=== PATIENT | female | born 1995 | race Caucasian/White ===

== ENCOUNTER → 2020-05-07 10:36 | Outpatient (CLI) | payer OTHER, SELFPAY ==
[2020-05-07 11:04] LABS: Add Manual Diff / Slide Review NO; Basophils Absolute Auto 0 /uL (0-100); Basophils Percent Auto 0.4 % (0-2); Eosinophils Absolute Auto 100 /uL (0-450); Eosinophils Percent Auto 1.3 % (2-4); Hematocrit 37.8 % (36-46); Hemoglobin 12.8 g/dL (12.0-16.0); Lymphocytes Absolute Auto 2000 /uL (1100-4500); Lymphocytes Percent Auto 26.5 % (25-40); Mean Corpuscular HGB Conc 33.8 % (30-36); Mean Corpuscular Hemoglobin 28.5 PG (26-34); Mean Corpuscular Volume 84.4 fL (80-100); Monocytes Absolute Auto 500 /uL (0-900); Monocytes Percent Auto 6.5 % (3-14); Neutrophils Absolute Auto 5000 /uL (1500-7000); Neutrophils Percent Auto 65.3 % (50-75); Platelet Count 263 X10^3/uL (150-400); Red Blood Cell Count 4.48 X10^6/uL (4.0-5.2); Red Cell Distribution Width 13.2 % (11.6-14.8); White Blood Cell Count 7.6 X10^3/uL (4.5-11.0)
[2020-05-07 11:23] LABS: Alanine Aminotransferase 30 IU/L (<35); Albumin 4.4 g/dL (3.5-5.0); Albumin Globulin Ratio 1.4 (1.0-2.8); Alkaline Phosphatase 87 U/L (38-126); Amylase 74 U/L (30-110); Aspartate Aminotransferase 27 IU/L (14-36); Bilirubin Total 0.5 mg/dL (0.2-1.3); Blood Urea Nitrogen 11 mg/dL (7-17); Calcium 9.4 mg/dL (8.4-10.2); Carbon Dioxide 29 mmol/L (22-32); Chloride 104 mmol/L (98-107); Creatine Kinase 69 U/L (30-135); Estimated Glomerular Filt Rate > 60.0 mL/min (>60); Globulin 3.2 g/dL (1.7-4.1); Glucose 106 mg/dL (70-100); HEMOLYSIS < 15 (0-50); Lipase 38 U/L (23-300); Potassium 4.5 mmol/L (3.4-5.1); Sodium 138 mmol/L (137-145); Total Protein 7.6 g/dL (6.3-8.2)
[2020-05-07 11:35] LABS: Troponin I < 0.012 ng/mL (0.01-0.034)
== END ==
PROVIDERS: Referring Provider Physician Assistant; Visit Provider Physician Assistant
DX: R07.9 Chest pain, unspecified (principal)
CPT/HCPCS: 36415; 80053; 82150; 82550; 83690; 84443; 84484; 85025

== ENCOUNTER 2020-12-27 02:10 | Emergency (ER) | payer OTHER, SELFPAY ==
--- NOTE | 2020-12-27 02:21 | DI.RAD.S_ITS ---
PROCEDURE: XR CHEST 1V INDICATIONS: chest pain TECHNIQUE: One view of the chest was acquired. COMPARISON: None. FINDINGS: Surgical changes and devices: None. Lungs and pleura: Lungs are clear. No pleural effusions or pneumothorax. Mediastinum: Mediastinal contours appear normal. Heart size is normal. Bones and chest wall: No suspicious bony lesions. Overlying soft tissues appear unremarkable. IMPRESSION: No acute cardiopulmonary disease process. Dictated by: Shu Lorenzo MD, PhD on 12/27/2020 at 8:36 Approved by: Shu Lorenzo MD, PhD on 12/27/2020 at 8:37
--- NOTE | 2020-12-27 02:21 | ED.GENADULT ---
HPI - General Adult General Chief complaint: Chest Pain Stated complaint: Severe chest pain Time Seen by Provider: 12/27/20 02:19 Source: patient Mode of arrival: Ambulatory Limitations: no limitations History of Present Illness HPI narrative: Patient is a 25-year-old female here for evaluation of retrosternal chest pressure. She states this started last evening. She initially thought that it was reflux disease and she is took some Tums but it was unhelpful and then she had episode of a very sharp pressure/squeezing sensation that would come and go. No nausea vomiting. She has had issues with reflux in the past. Related Data Home Medications Medication Instructions Recorded Confirmed multivitamin 1 tab PO DAILY 12/28/19 12/11/20 trazodone 50 mg tablet 50 mg PO BEDTIME PRN tab 12/11/20 12/11/20 Previous Rx's Medication Instructions Recorded sertraline 50 mg tablet 75 mg PO DAILY #135 tab 10/30/20 bupropion HCl 150 mg 24 hr tablet, 150 mg PO QAM #30 tab 12/11/20 extended release Allergies Allergy/AdvReac Type Severity Reaction Status Date / Time Penicillins Allergy Verified 12/11/20 10:15 Review of Systems Constitutional Constitutional: Denies fever(s) and Denies headache(s) ENT Ears, Nose, Mouth, and Throat: Denies headache(s) Cardiovascular Cardiovascular: Reports chest pain and Denies dyspnea Respiratory Respiratory: Denies dyspnea Gastrointestinal Gastrointestinal: Denies abdominal pain, Denies nausea and Denies vomiting Integumentary/Breasts Skin/Breast: Denies lesions and Denies rash Neurologic Neurologic: Denies behavioral changes and Denies headache(s) Psychiatric Psychiatric: Denies behavioral changes Hematologic/Lymphatic On Anticoagulants: No Allergic/Immunologic Allergic/Immunologic: Denies urticaria Patient History Medical History Chest pain Major depressive disorder, recurrent episode, severe Panic attack Social History Smoking Status: Never smoker Smoking Status: Never smoker Exam Initial Vital Signs Initial Vital Signs: Vital Signs Temperature 97.9 F 12/27/20 02:22 Pulse Rate 104 H 12/27/20 02:22 Respiratory Rate 18 12/27/20 02:22 Blood Pressure 128/83 04/15/21 02:22 Pulse Oximetry 99 12/27/20 02:22 Const General: cooperative and comfortable Limitations: mental status not altered HENMT Head: normal to inspection and normocephalic Resp Effort & Inspection: normal respiratory effort Auscultation: clear to auscultation bilaterally Cardio Rate: tachycardic Rhythm: regular rhythm GI Inspection: non-distended Palpation: soft Skin Lesions: no lesions Rashes: no rashes Neuro General: patient alert and patient awake Cognition: normal cognition Speech: speech normal Extrem General: normal to inspection and capillary refill normal Psych Appearance: grossly normal and well kempt Course Orders Ordered: ED Orders 12/27/20 02:17 EKG-12 Lead Stat 12/27/20 02:21 XR chest 1V Stat Discontinued Medications Al Hydrox/Mg Hydrox/Simethicone 20 ml/ Lidocaine HCl 15 ml 0 ml PO NOW ONE Stop: 12/27/20 02:21 Last Admin: 12/27/20 02:33 Dose: 35 ml Documented by: GILL Vital Signs Vital signs: Vital Signs - 8 hr 12/27/20 02:22 12/27/20 03:06 Temperature 97.9 F Pulse Rate 104 H 110 H Respiratory Rate 18 18 Blood Pressure 128/83 128/83 Pulse Oximetry 99 99 Medical Decision Making Imaging Data Chest x-ray: Radiologist's Impression: There is no active disease in the chest ECG Data Attestation: I personally reviewed and interpreted this ECG as follows: Prior ECG tracings: not available for review Interpretation: Sinus tachycardia Ventricular rate 104 Normal QRS Normal QTC No ST T wave changes MDM Narrative Medical decision making narrative: Patient did report improvement of symptoms after the GI cocktail. Was not a complete resolution. Her retrosternal chest discomfort is colicky in nature. She has had reflux disease in the past and I feel that this is most likely the cause of her symptoms today. She very well could also be having esophageal spasms. Her chest x-ray is unremarkable. Her EKG is unremarkable. She is low risk for cardiovascular disease. I have low suspicion for pulmonary embolism given her presentation. We did discuss the use of famotidine. We discussed return precautions and follow-up instructions. She expressed understanding and agreement. Discharge Plan Departure Patient Disposition: Home Clinical Impression: Atypical chest pain Instructions: DI for Atypical Chest Pain Activity Restrictions/Additional Instructions: I recommend that you start a medication called Pepcid/famotidine. You can purchase this [id number]. I also recommend that you take other [id number] antacids such as Tums or Maalox like we discussed. Contact your primary provider for a follow-up. Return to the emergency department for any new or worsening symptoms Prescriptions: No Action sertraline 50 mg tablet 75 mg PO DAILY Qty: 135 RF: 1 trazodone 50 mg tablet 50 mg PO BEDTIME PRN (Reason: insomnia) RF: 0 bupropion HCl 150 mg tablet extended release 24 hr 150 mg PO QAM Qty: 30 RF: 1 multivitamin Tablet 1 tab PO DAILY RF: 0
[2020-12-27 02:22] VITALS: BP 128/83; PULSE 104; RESP 18; TEMP 36.6; O2SAT 99
[2020-12-27] MEDS: MAG HYDROX/ALUMINUM/SIMETH SUS 20 ML, LIDOCAINE VISCOUS 2% 15 ML PO (02:33)
[2020-12-27 03:06] VITALS: BP 128/83; PULSE 110; RESP 18; O2SAT 99
== END 2020-12-27 03:26 | disposition home or self-care (01) ==
PROVIDERS: Emergency Provider Emergency Medicine
DX: R07.89 Other chest pain (principal)
CPT/HCPCS: 71045; 93005; 93010; 99284

== ENCOUNTER 2021-04-14 20:13 | Emergency (ER) | payer OTHER, SELFPAY ==
[2021-04-14] VITALS (14 sets, daily range): BP systolic 101–133; BP diastolic 58–78; PULSE 94–125; RESP 14–37; TEMP 36.7; O2SAT 93–96
--- NOTE | 2021-04-14 20:25 | DI.RAD.S_ITS ---
PROCEDURE: XR CHEST 1V INDICATIONS: flu-like symptoms TECHNIQUE: One view of the chest was acquired. COMPARISON: [facility], CR, XR CHEST 1V, 12/27/2020, 2:44. FINDINGS: Surgical changes and devices: None. Lungs and pleura: Low lung volumes are seen bilaterally. Patchy airspace opacities are seen in the peripheral portions of the right upper and mid lung zones and the left lower lung zone. No pleural effusion or pneumothorax. Mediastinum: Mediastinal contours appear normal. Heart size is normal. Bones and chest wall: No suspicious bony lesions. Overlying soft tissues appear unremarkable. IMPRESSION: Patchy bilateral airspace opacities are suspicious for pneumonia, including with viral agents such as COVID-19. Dictated by: Crow Sherman M.D. on 04/14/2021 at 21:11 Approved by: Crow Sherman M.D. on 04/14/2021 at 21:12
--- NOTE | 2021-04-14 20:55 | PC.NURSE ---
While starting pt's IV she appeared to have a vagal episode. She became nauseous, light headed, HR dropped from 115 to 65 along with a BP drop. MD called to bedside.
[2021-04-14] MEDS: SODIUM CHLORIDE 0.9% 1,000 ML 125 ML IV (21:05)
[2021-04-14] MEDS: ONDANSETRON 4 MG/2 ML INJ IV (21:05)
[2021-04-14 21:13] LABS: Add Manual Diff / Slide Review NO; Basophils Absolute Auto 0 /uL (0-100); Basophils Percent Auto 0.2 % (0-2); Eosinophils Absolute Auto 0 /uL (0-450); Hematocrit 40.4 % (36-46); Hemoglobin 13.7 g/dL (12.0-16.0); Lymphocytes Absolute Auto 1000 /uL (1100-4500); Lymphocytes Percent Auto 18.3 % (25-40); Mean Corpuscular Hemoglobin 29.3 PG (26-34); Mean Corpuscular Volume 86.3 fL (80-100); Monocytes Absolute Auto 500 /uL (0-900); Monocytes Percent Auto 8.7 % (3-14); Neutrophils Absolute Auto 3800 /uL (1500-7000); Neutrophils Percent Auto 72.8 % (50-75); Platelet Count 159 X10^3/uL (150-400); Red Blood Cell Count 4.69 X10^6/uL (4.0-5.2); Red Cell Distribution Width 13.3 % (11.6-14.8); White Blood Cell Count 5.2 X10^3/uL (4.5-11.0)
[2021-04-14 21:22] LABS: D Dimer 467 ng/mL (<230)
[2021-04-14 21:24] LABS: Alanine Aminotransferase 33 IU/L (<35); Albumin 4.4 g/dL (3.5-5.0); Albumin Globulin Ratio 1.2 (1.0-2.8); Alkaline Phosphatase 65 U/L (38-126); Aspartate Aminotransferase 56 IU/L (14-36); BUN Creatinine Ratio 11.5 (6-22); Bilirubin Total 0.6 mg/dL (0.2-1.3); Blood Urea Nitrogen 6 mg/dL (7-17); Calcium 8.9 mg/dL (8.4-10.2); Carbon Dioxide 27 mmol/L (22-32); Chloride 99 mmol/L (98-107); Creatine Kinase 43 U/L (30-135); Estimated Glomerular Filt Rate > 60.0 mL/min (>60); Globulin 3.7 g/dL (1.7-4.1); Glucose 123 mg/dL (70-100); HEMOLYSIS < 15 (0-50); Potassium 3.2 mmol/L (3.4-5.1); Sodium 136 mmol/L (137-145); Total Protein 8.1 g/dL (6.3-8.2)
[2021-04-14 21:32] LABS: C-Reactive Protein Quant 6.1 mg/dL (<1.0)
[2021-04-14 21:36] LABS: NT-proBNP (BNP-Adult 18+) < 11 pg/mL (<125); Troponin I < 0.012 ng/mL (0.01-0.034)
--- NOTE | 2021-04-14 21:36 | ED_ITS ---
HPI - Fever General Chief Complaint: Fever Stated Complaint: SEVERE COVID SYMPTOMS THROWING UP FEVER 102.4 Time Seen by Provider: 04/14/21 20:30 Source: patient Mode of arrival: Ambulatory Limitations: no limitations History of Present Illness HPI Narrative: 26-year-old female nonsmoker with noncontributory medical history presents with a chief complaint of multiple viral type symptoms present over the past week or so. She has been diagnosed with COVID and was just immunized about a week ago. She has had headache and sore throat as well as dry and hacking cough. She has nausea but denies any vomiting or diarrhea. She denies dysuria, frequency or urgency. She has had a fever as high as 102/103 and states she aches all over. She feels weak and has had a poor appetite. She does use a pulse oximeter through an liya on a high phone at home which measured 84%, however on arrival here she was 94% on and no obvious respiratory distress. Related Data Home Medications Medication Instructions Recorded Confirmed multivitamin 1 tab PO DAILY 12/28/19 01/22/21 trazodone 50 mg tablet 50 mg PO BEDTIME PRN tab 12/11/20 01/22/21 Previous Rx's Medication Instructions Recorded sertraline 50 mg tablet 75 mg PO DAILY #135 tab 01/04/21 duloxetine 60 mg capsule,delayed 60 mg PO DAILY #30 cap 03/28/21 release Allergies Allergy/AdvReac Type Severity Reaction Status Date / Time Penicillins Allergy Unknown Verified 04/14/21 20:25 Review of Systems Review of Systems Narrative: GENERAL: See HPI HEENT: See HPI RESPIRATORY: See HPI. CARDIOVASCULAR: Denies chest pain, palpitations, orthopnea, edema, GASTROINTESTINAL: Denies nausea, vomiting, abdominal pain, diarrhea, con stipation, melena. : Denies dysuria, frequency, incontinence, hematuria, urinary retention. MUSCULOSKELETAL: denies weakness, joint pain, or bony pain SKIN: Denies rash, skin lesions, or other NEUROLOGIC: Denies weakness, headache, numbness, change in speech, confusion, seizures, incoordination. PSYCHIATRIC: No concerning psychosocial issues. 12 point review of systems is negative except for those stated above Patient History Medical History Chest pain Major depressive disorder, recurrent episode, severe Panic attack Social History Smoking Status: Never smoker Smoking Status: Never smoker alcohol intake frequency: 0-2 drinks per day Substance Use Type: marijuana Exam Narrative Exam Narrative: GENERAL: [26] year old patient appears stated age. Well- developed patient, in mild distress. Appears to feel unwell HEAD: Atraumatic. Normocephalic. EYES: Pupils equal round and reactive. Extraocular motions intact. No scleral icterus. No injection or drainage. ENT: Nose without bleeding, purulent drainage. Throat without erythema, tonsillar hypertrophy or exudate. Airway patent. NECK: Trachea midline. Non tender CARDIOVASCULAR: Regular rate and rhythm without murmurs, gallops, or rubs. RESPIRATORY: Faint crackles throughout, no increased work of breathing such as use of accessories, intercostals or tachypnea. No hypoxia. GASTROINTESTINAL: Abdomen soft, non-tender, nondistended. EXTREMITIES: No edema or joint tenderness. BACK: Nontender without deformity or crepitance. No flank tenderness. NEURO: AOx3. SKIN: No rash or erythema of visible areas Initial Vital Signs Initial Vital Signs: Vital Signs Temperature 98.0 F 04/14/21 20:19 Pulse Rate 125 H 04/14/21 20:19 Respiratory Rate 26 H 04/14/21 20:19 Blood Pressure 133/78 04/14/21 20:19 Pulse Oximetry 94 04/14/21 20:19 Course Orders Ordered: ED Orders 04/14/21 21:00 C-Reactive Protein Quant Stat Complete Blood Count AUTO DIFF Stat Comprehensive Metabolic Panel Stat D Dimer Stat Ferritin Stat NT-proBNP (BNP-Adult 18+) Stat Procalcitonin Stat Troponin & CK Cardiac Panel Stat Discontinued Medications Sodium Chloride (Normal Saline 0.9%) 1,000 mls @ 125 mls/hr IV CONT ZACHARIAH Last Infusion: 04/14/21 22:24 Dose: 0 mls/hr Documented by: Admin: 04/14/21 21:05 Dose: 125 mls/hr Documented by: SERAFIN Ketorolac Tromethamine (Ketorolac 30 Mg/Ml Vial) 15 mg IV NOW ONE Stop: 04/14/21 22:27 Last Admin: 04/14/21 22:35 Dose: 15 mg Documented by: SERAFIN Ondansetron HCl (Ondansetron 4 Mg/2 Ml Inj) 4 mg IV NOW ONE Stop: 04/14/21 20:36 Last Admin: 04/14/21 21:05 Dose: 4 mg Documented by: SERAFIN Ondansetron HCl (Ondansetron 4 Mg Odt Prepack) 1 bottle MISC SEEINSTR ONE Stop: 04/14/21 22:27 Last Admin: 04/14/21 22:35 Dose: 1 bottle Documented by: SERAFIN Pantoprazole Sodium (Pantoprazole 40 Mg Vial) 20 mg IV NOW ONE Stop: 04/14/21 22:27 Last Admin: 04/14/21 22:35 Dose: 20 mg Documented by: SERAFIN Vital Signs Vital signs: Vital Signs - 8 hr 04/14/21 21:40 04/14/21 21:50 04/14/21 22:00 Pulse Rate 104 H 98 H 106 H Respiratory Rate 20 16 20 Blood Pressure 119/65 116/70 109/64 Pulse Oximetry 94 95 93 04/14/21 22:10 04/14/21 22:20 04/14/21 22:30 Pulse Rate 97 H 98 H 101 H Respiratory Rate 15 20 30 H Blood Pressure 109/64 112/68 122/67 Pulse Oximetry 94 95 96 04/14/21 22:40 04/14/21 22:50 04/14/21 23:00 Pulse Rate 103 H 105 H 106 H Respiratory Rate 32 H 37 H 35 H Blood Pressure 108/71 112/72 107/65 Pulse Oximetry 94 94 93 04/14/21 23:10 04/14/21 23:20 Pulse Rate 94 H 104 H Respiratory Rate 29 H 24 Blood Pressure 110/59 L 101/58 L Pulse Oximetry 94 95 MDM - Fever Lab Data Result diagrams: 04/14/21 21:00 04/14/21 21:00 Labs: Lab Results 04/14/21 04/14/21 04/14/21 Range/Units 21:00 21:00 21:00 WBC 5.2 (4.5-11.0) X10^3/uL RBC 4.69 (4.0-5.2) X10^6/uL Hgb 13.7 (12.0-16.0) g/dL Hct 40.4 (36-46) % MCV 86.3 (80-100) fL MCH 29.3 (26-34) PG MCHC 34.0 (30-36) % RDW 13.3 (11.6-14.8) % Plt Count 159 (150-400) X10^3/uL Neut % (Auto) 72.8 (50-75) % Lymph % (Auto) 18.3 L (25-40) % [place] % (Auto) 8.7 (3-14) % Eos % (Auto) 0.0 L (2-4) % Baso % (Auto) 0.2 (0-2) % Neut # (Auto) 3800 (3948-2757) /uL Lymph # (Auto) 1000 L (5788-6475) /uL [place] # (Auto) 500 (0-900) /uL Eos # (Auto) 0 (0-450) /uL Baso # (Auto) 0 (0-100) /uL D-Dimer 467 H (<230) ng/mL Sodium 136 L (137-145) mmol/L Potassium 3.2 L (3.4-5.1) mmol/L Chloride 99 (98-107) mmol/L Carbon Dioxide 27 (22-32) mmol/L BUN 6 L (7-17) mg/dL Creatinine 0.52 (0.52-1.04) mg/dL Estimated GFR > 60.0 (>60) mL/min BUN/Creatinine Ratio 11.5 (6-22) Glucose 123 H (70-100) mg/dL Calcium 8.9 (8.4-10.2) mg/dL Ferritin 173 H (6-137) ng/mL Total Bilirubin 0.6 (0.2-1.3) mg/dL AST 56 H (14-36) IU/L ALT 33 (<35) IU/L Alkaline Phosphatase 65 (38-126) U/L Total Creatine Kinase 43 (30-135) U/L CK-MB (CK-2) TNP CK-MB (CK-2) Rel Index TNP Troponin I < 0.012 (0.01-0.034) ng/mL C-Reactive Protein 6.1 H (<1.0) mg/dL NT-Pro-B Natriuret Pep < 11 (<125) pg/mL Total Protein 8.1 (6.3-8.2) g/dL Albumin 4.4 (3.5-5.0) g/dL Globulin 3.7 (1.7-4.1) g/dL Albumin/Globulin Ratio 1.2 (1.0-2.8) Procalcitonin 0.08 (<0.5) ng/mL Imaging Data Chest x-ray: Radiologist's Impression: [place] [id number] [place] [id number] ReportSigned Patient: Beverly Cervantes CMR#: [id number]: [id number]:[id number]/Sex: FDate of Service: 04/14/21Loc: EDAccession Number: [id number] Procedure: XR chest 1V Ordering Provider: Bhupinder Chauhan D.O. PROCEDURE: XR CHEST 1V INDICATIONS: flu-like symptoms TECHNIQUE: One view of the chest was acquired. COMPARISON: [facility], , XR CHEST 1V, 12/27/2020, 2:44. FINDINGS: Surgical changes and devices: None. Lungs and pleura: Low lung volumes are seen bilaterally. Patchy airspace opacities are seen in the peripheral portions of the right upper and mid lung zones and the left lower lung zone. No pleural effusion or pneumothorax. Mediastinum: Mediastinal contours appear normal. Heart size is normal. Bones and chest wall: No suspicious bony lesions. Overlying soft tissues appear unremarkable. IMPRESSION: Patchy bilateral airspace opacities are suspicious for pneumonia, including with viral agents such as COVID-19. Dictated by: Crow Sherman M.D. on 04/14/2021 at 21:11 Approved by: Crow Sherman M.D. on 04/14/2021 at 21:12 [facility] Narrative Medical decision making narrative: Patient resting comfortably, still nauseated but no vomiting, no signs of respiratory distress such as tachypnea, hypoxia, need for supplemental oxygen. Her labs are as expected, low potassium has been replaced. Return precautions are given and questions answered to her apparent satisfaction Discharge Plan Departure Patient Disposition: Home Clinical Impression: COVID-19 Instructions: DI for COVID-19 (Suspected or Confirmed ) Activity Restrictions/Additional Instructions: *You have been diagnosed with [ COVID-19] *What to do: * per recommendations from the CDC and the [facility] Department of Health * stay home except to get medical care. Restrict activities outside your home, except for getting medical care. Do not go to work, school, or public areas. Avoid using public transportation, ride sharing, or taxis. * separate yourself from other people in your home. * call ahead before visiting your doctor * Wear a facemask * Cover your coughs and sneezes * Clean your hands often * Avoid sharing household items * Clean all high-touch services every day * Monitor your symptoms and seek prompt medical attention if your illness is worsening, particularly with difficulty in breathing. You may discontinue your isolation when: 1. You have been fever-free for at least 24 hours without the use of fever reducing medication, AND 2. Your symptoms are getting better 3. At least 10 days have passed since symptoms first appeared Individuals with laboratory confirmed COVID-19 who have not had any symptoms may discontinue home isolation when at least 10 days have passed since the date of their first COVID-19 diagnostic test and have had no subsequent illness Prescriptions: No Action trazodone 50 mg tablet 50 mg PO BEDTIME PRN (Reason: insomnia) RF: 0 multivitamin Tablet 1 tab PO DAILY RF: 0 sertraline 50 mg tablet 75 mg PO DAILY Qty: 135 RF: 1 Hold Instructions: 01/22/21 trial of duloxetine duloxetine 60 mg capsule,delayed release(DR/EC) 60 mg PO DAILY Qty: 30 RF: 1
[2021-04-14 21:40] LABS: Procalcitonin 0.08 ng/mL (<0.5)
[2021-04-14 21:58] LABS: Ferritin 173 ng/mL (6-137)
[2021-04-14] MEDS: PANTOPRAZOLE 40 MG VIAL 20 MG IV (22:35)
[2021-04-14] MEDS: KETOROLAC 30 MG/ML VIAL 15 MG IV (22:35)
[2021-04-14] MEDS: ONDANSETRON 4 MG ODT PREPACK 1 BOTTLE MISC (22:35)
== END 2021-04-14 23:29 | disposition home or self-care (01) ==
PROVIDERS: Emergency Provider Emergency Medicine
DX: U07.1 COVID-19 (principal); R11.0 Nausea; R50.9 Fever, unspecified
CPT/HCPCS: 36415; 71045; 80053; 82550; 82728; 83880; 84145; 84484; 85025; 85379; 86140; 93005; 96361; 96374; 96376; 99284; C9113; J1885; J2405

== ENCOUNTER 2024-02-01 21:36 | Emergency (ER) | payer SELFPAY ==
[2024-02-01 21:40] VITALS: BP 143/84; PULSE 115; RESP 17; TEMP 36.8; O2SAT 98; BMI 40.2
--- NOTE | 2024-02-01 23:42 | DI.RAD.S_ITS ---
PROCEDURE: XR TIBIA FIBULA LT 2V INDICATIONS: pain TECHNIQUE: 2 views of the tibia and fibula were acquired. COMPARISON: None. FINDINGS: Bones: No fractures or dislocations. No suspicious bony lesions. Soft tissues: No suspicious soft tissue calcifications or masses. IMPRESSION: No acute bony abnormality. Dictated by: Marisa Anand M.D. on 02/02/2024 at 1:21 Approved by: Marisa Anand M.D. on 02/02/2024 at 1:21
--- NOTE | 2024-02-02 03:08 | ED_ITS ---
HPI - Extremity Injury (Lower) General Chief Complaint: Extremity Injury, Lower Stated Complaint: HBP, LOC, leg pain, pricking in scalp, lips blue Time Seen by Provider: 02/02/24 03:08 Source: patient and family Mode of arrival: Wheelchair History of Present Illness HPI Narrative: (patient placed in room 5-1/2 hours after time of triage due to high ED volume) 28-year-old female with multiple complaints. She jumped from a low height 2 days ago onto her left heel and felt pain to her left anterior leg. Last night proximally 8:00 a.m. she felt like she was going to pass out and thinks she might have briefly passed out. She reports that she has had passing-out episodes in the past with negative workup, seen in clinic or emergency department setting. Apparently no brain imaging has been done in the past, no suspected seizures known, no antiseizure medications, no consultations with Cardiology or Neurology, no monitor technician worn in the past, or other workup besides acute care visits as she reported. She takes trazodone and duloxetine, no recent medication changes. She seemed to have some concerns that she might have blood clot causing her passing out, with her leg pain after recent injury. However her symptoms are anterior in nature and no pain with ambulation, no previous blood clots. No associated chest pain or palpitations recalled. No associated headaches or change in vision recalled. While in the waiting room she had no symptoms for a number of hours before placed in the room. Related Data Home Medications Medication Instructions Recorded Confirmed multivitamin 1 tab PO DAILY 12/28/19 01/22/21 Previous Rx's Medication Instructions Recorded duloxetine 30 mg capsule,delayed 30 mg PO BEDTIME #30 caps 08/19/21 release trazodone 50 mg tablet 50 mg PO BEDTIME PRN insomnia #90 08/19/21 tabs Allergies Allergy/AdvReac Type Severity Reaction Status Date / Time Penicillins Allergy Unknown Never Verified 02/01/24 21:40 taken them Patient History Medical History Chest pain Major depressive disorder, recurrent episode, severe Panic attack Social History Smoking Status: Never smoker Smoking Status: Never smoker alcohol intake frequency: 0-2 drinks per day Substance Use Type: marijuana Exam Narrative Exam Narrative: GENERAL: Well-developed patient, anxious appearing with persistent pressive speech HEAD: Atraumatic. Normocephalic. EYES: Pupils equal round and reactive. Extraocular motions intact. No scleral icterus. No injection or drainage. ENT: Nose without bleeding, purulent drainage. Throat without erythema, tonsillar hypertrophy or exudate. Airway patent. NECK: Trachea midline. Non tender CARDIOVASCULAR: Regular rate and rhythm without murmurs, gallops, or rubs. RESPIRATORY: Clear to auscultation. Breath sounds equal bilaterally. No wheezes, rales, or rhonchi. GASTROINTESTINAL: Obese, abdomen soft, non-tender, nondistended. EXTREMITIES: No gross lower extremity deformities, left anterior foreleg with mild distal 3rd junction area tenderness, no bruising to skin, no abrasions, no erythema. Negative left Homans sign, no gross swelling redness or tenderness to left calf. Distal ankle foot toes Unremarkable. No tenderness to knee thigh. Right lower extremity atraumatic appearing. BACK: Nontender without deformity or crepitance. No flank tenderness. NEURO: AOx3. SKIN: No rash or erythema of visible areas Initial Vital Signs Initial Vital Signs: Vital Signs Temperature 98.3 F 02/01/24 21:40 Pulse Rate 115 H 02/01/24 21:40 Respiratory Rate 17 02/01/24 21:40 Blood Pressure 143/84 H 02/01/24 21:40 Pulse Oximetry 98 02/01/24 21:40 Oxygen Delivery Method Room Air 02/01/24 21:40 Course Orders Ordered: ED Orders 02/01/24 23:42 XR tibia fibula LT 2V Stat Vital Signs Vital signs: Vital Signs - 8 hr 02/01/24 21:40 02/02/24 03:14 02/02/24 04:23 Temperature 98.3 F Pulse Rate 115 H 99 H 105 H Respiratory Rate 17 16 16 Blood Pressure 143/84 H 142/89 H 142/94 H Pulse Oximetry 98 97 97 Oxygen Delivery Method Room Air Room Air Room Air MDM - Extremity Injury (Lower) MDM Narrative Medical decision making narrative: 28-year-old female with left anterior distal foreleg pain, after jumping 2 days ago from short height, x-ray done from triage negative for any fracture, exam not consistent with any blood clots that she seemed to have some concerns about. We had discussion about her syncopal episode, in context of progressive speech seems more likely anxiety related. But could have some underlying organic problem. We specifically discussed workup that might include CT head imaging, EKG, blood work. After patient discussed things with me outside the room with her , they decided to forego further workup of recurrent syncopal episodes for now here, would pursue further workup as an outpatient, that might also include Holter/cardiac/event monitoring. Cardiology contact information provided, though she might require referral from primary care provider. They felt like they would like to go home now with no further workup at this time. Return precautions discussed, improved, home with Discharge Plan Departure Patient Disposition: Home Clinical Impression: Left leg pain, Syncopal episodes Activity Restrictions/Additional Instructions: Left anterior foreleg pain after jumping from a small height onto left heel day before last, x-ray done from triage negative for any fracture or underlying lesions. Anterior exam and lack of tenderness and swelling seems not consistent with venous blood clot in the posterior calf circulation at this time. You also had related an episode of passing out last night, and apparently have had passing-out episodes in the past with negative workup. For tonight we discussed further workup that could be done. Specifically we talked about CT head imaging noncontrast, declined. We talked about blood testing, declined. We talked about EKG and cardiac monitoring, declined. Some testing can be done as an outpatient such as cardiac echocardiography to look for cardiac structural problems, EEG to look for seizures, cardiac monitoring to look for abnormal cardiac rhythms, neurology consultation, Cardiology consultation. Contact information given for local wheelchair driver Dr Almeida on-call, if you want try to have further workup through their office, however you might require referral from your primary care provider. For now you had discussion with your at bedside, and decided you would not want to have any further workup at this time in the emergency department. Consider further workup as an outpatient. Discuss with your regular provider, to coordinate further workup and referrals as needed, on an outpatient basis for now. If you have recurrence of symptoms of passing out or feeling like he might pass out, consider recheck here in this/nearest emergency department. Follow up with your mental health providers, continuing your chronic medications same for now, though perhaps they might need to be adjusted, perhaps they are related to above symptoms. Prescriptions: No Action multivitamin Tablet 1 tab PO DAILY trazodone 50 mg tablet 50 mg PO BEDTIME PRN (Reason: insomnia) Qty: 90 1RF duloxetine 30 mg capsule,delayed release(DR/EC) 30 mg PO BEDTIME Qty: 30 2RF Rx Instructions: 08/16/21 dose decrease; ok to try stopping after 1 month Referrals: Miscellaneous,Doctor, [Primary Care Provider] - Jenniffer Almeida MD [Physician] - Stand Alone Forms: Patient Portal/API
[2024-02-02 03:14] VITALS: BP 142/89; PULSE 99; RESP 16; O2SAT 97
[2024-02-02 04:23] VITALS: BP 142/94; PULSE 105; RESP 16; O2SAT 97
== END 2024-02-02 04:26 | disposition home or self-care (01) ==
PROVIDERS: Emergency Provider Emergency Medicine
DX: M79.662 Pain in left lower leg (principal); R55 Syncope and collapse
CPT/HCPCS: 73590; 99281; 99283